=== PATIENT | male | born 1970 | race Two or more races ===

== ENCOUNTER 2018-11-29 09:38 | Emergency (ER) | payer SELFPAY ==
[~2018-11-29] VITALS: Ht 172.7 cm; Wt 77.1 kg
--- NOTE | 2018-11-29 09:50 | NUR ---
[facility] AT BEDSIDE FOR MSE.
[2018-11-29] MEDS ORDERED: AZITHROMYCIN 250 MG TABLET ONE (09:57)
[2018-11-29] MEDS ORDERED: CEFTRIAXONE 1 G VIAL ONE (09:57)
[2018-11-29] MEDS ORDERED: AZITHROMYCIN 250 MG TABLET PO ONE (10:00)
[2018-11-29] MEDS ORDERED: CEFTRIAXONE 500 MG VIAL IM ONE (10:00)
--- NOTE | 2018-11-29 10:14 | NUR ---
Patient discharged to home in stable conditon. Written and verbal after care instructions given. Patient verbalizes understanding of instructions. ALL BELONGINGS W/ PT. PT SELF-AMBULATED W/O DIFFICULTY. PT TOLERATED ALL MEDS W/O COMPLICATIONS.
[2018-11-29 10:15] VITALS: BP 116/72
== END 2018-11-29 10:17 | disposition home or self-care (01) ==
LOC: ER 09:38
DX: N34.2 Other urethritis (principal); L01.00 Impetigo, unspecified; B95.61 Methicillin susceptible Staphylococcus aureus infection as the cause of diseases classified elsewhere
CPT/HCPCS: 96372; 99283; J0696; A4663; Q0144